=== PATIENT | female | born 2000 | race African-American/Black ===

== ENCOUNTER 2021-03-05 14:13 | Emergency (ER) | payer OTHER ==
[2021-03-05 14:47] VITALS: TEMP 98.2; BMI 23.6
[2021-03-05] MEDS ORDERED: IBUPROFEN 400 MG TABLET (FP) PO ONE ×2 (16:09→16:17)
[2021-03-05 17:51] VITALS: BP 121/70; PULSE 79
== END 2021-03-05 17:40 | disposition home or self-care (01) ==
LOC: JER 14:13
DX: M79.10 Myalgia, unspecified site (principal); Z32.02 Encounter for pregnancy test, result negative
CPT/HCPCS: 84703; 99283-25

== ENCOUNTER 2023-08-14 09:36 | Emergency (ER) | payer OTHER ==
[2023-08-14 09:49] VITALS: RESP 18; BMI 25.7
[2023-08-14] MEDS: SODIUM CHLORIDE 0.9% 500 ML INFUS.BAG IV ONE ×2 (10:29→12:07)
[2023-08-14 10:35] LABS: BASO % 0.5 % (0-2.0); EOS % 0.3 % (0-4.5); HEMATOCRIT 42.4 % (32.4-45.2); HEMOGLOBIN 14.6 GM/dL (10.7-15.3); LYMPH % 18.3 % (8-40); MCH 32.5 pg (25.7-33.7); MCHC 34.4 g/dl (32.0-36.0); MEAN CELL VOLUME 94.6 fl (80-96); NEUT % 74.9 % (42.8-82.8); PLATELET COUNT 231 10^3/uL (134-434); RBC 4.49 M/mm3 (3.60-5.2); RDW 12.5 % (11.6-15.6); WHITE BLOOD COUNT 9.1 K/mm3 (4.0-10.0)
[2023-08-14 10:38] LABS: EPI CELLS 36 /uL (0-25.1); HYALINE CASTS 6 /uL (0-3.1); URINE APPEARANCE CLOUDY; URINE BACTERIA 543 /uL (0-1359); URINE BILIRUBIN 1+ (NEGATIVE); URINE COLOR DK YELLOW; URINE GLUCOSE (UA) NEGATIVE (NEGATIVE); URINE KETONE 4+ (NEGATIVE); URINE LEUK ESTERASE NEGATIVE (NEGATIVE); URINE NITRITE NEGATIVE (NEGATIVE); URINE PROTEIN 1+ (NEGATIVE); URINE RBC 33 /uL (0-23.9)
[2023-08-14] MEDS ORDERED: ACETAMINOPHEN INJECTION 100 ML IVPB ONE (11:03)
[2023-08-14] MEDS: ACETAMINOPHEN 1000 MG/100 ML BAG IVPB ONE (11:10)
[2023-08-14 11:24] LABS: URINE WBC 122 /uL (0-25.8)
[2023-08-14 11:42] LABS: POTASSIUM 3.5 mmol/L (3.5-5.1)
[2023-08-14 11:44] LABS: ALBUMIN 4.4 g/dl (3.4-5.0); BLOOD UREA NITROGEN 8.1 mg/dL (7-18); CALCIUM 9.6 mg/dL (8.5-10.1)
[2023-08-14 11:47] LABS: CREATININE 0.7 mg/dL (0.55-1.3)
[2023-08-14 11:48] LABS: TOT PROT 7.7 g/dl (6.4-8.2)
[2023-08-14 11:49] LABS: BILIRUBIN,TOTAL 0.9 mg/dL (0.2-1)
[2023-08-14] MEDS: PYRIDOXINE HCL (B-6) 50 MG TABLET (FP) PO ONE (11:57)
[2023-08-14] MEDS ORDERED: METOCLOPRAMIDE HCL INJECTION 10 MG/2 ML VIAL ONE (13:22)
[2023-08-14] MEDS ORDERED: FAMOTIDINE 20 MG/50 ML IVPB 20 MG/50 ML MG IVPB ONE (13:23)
[2023-08-14] MEDS: METOCLOPRAMIDE HCL INJECTION 10 MG/2 ML VIAL IVPUSH ONE (13:27)
[2023-08-14] MEDS: FAMOTIDINE 20 MG/50 ML IVPB 20 MG/50 ML MG IVPB ONE (13:27)
[2023-08-14] MEDS: DEXTROSE 5%-NORMAL SALINE 500 ML IV ONE (13:54)
[2023-08-14 13:55] VITALS: BP 131/57; PULSE 89; TEMP 98
[2023-08-14 15:57] LABS: PH,URINE 5.5 (5.0-8.0); URINE APPEARANCE CLEAR; URINE BILIRUBIN NEGATIVE (NEGATIVE); URINE COLOR YELLOW; URINE GLUCOSE (UA) 3+ (NEGATIVE); URINE KETONE NEGATIVE (NEGATIVE); URINE LEUK ESTERASE NEGATIVE (NEGATIVE); URINE NITRITE NEGATIVE (NEGATIVE); URINE PROTEIN NEGATIVE (NEGATIVE); URINE UROBILINOGEN 0.2 mg/dL (0.2-1.0)
[2023-08-14] MEDS ORDERED: ONDANSETRON 4 MG/2 ML VIAL ONE (16:22)
[2023-08-14] MEDS: ONDANSETRON 4 MG/2 ML VIAL IVPUSH ONE (16:26)
== END 2023-08-14 16:57 | disposition home or self-care (01) ==
LOC: JER 09:36
PROC: 3E033GC Introduction of Other Therapeutic Substance into Peripheral Vein, Percutaneous Approach (ICD-10-PCS; principal; 2023-08-14)
PROC: 3E033GC Introduction of Other Therapeutic Substance into Peripheral Vein, Percutaneous Approach (ICD-10-PCS; 2023-08-14)
PROC: 3E033GC Introduction of Other Therapeutic Substance into Peripheral Vein, Percutaneous Approach (ICD-10-PCS; 2023-08-14)
PROC: 3E033GC Introduction of Other Therapeutic Substance into Peripheral Vein, Percutaneous Approach (ICD-10-PCS; 2023-08-14)
PROC: 3E033NZ Introduction of Analgesics, Hypnotics, Sedatives into Peripheral Vein, Percutaneous Approach (ICD-10-PCS; 2023-08-14)
DX: O21.0 Mild hyperemesis gravidarum (principal); O26.891 Other specified pregnancy related conditions, first trimester; R10.84 Generalized abdominal pain; O99.891 Other specified diseases and conditions complicating pregnancy; R19.7 Diarrhea, unspecified; R35.0 Frequency of micturition; Z3A.01 Less than 8 weeks gestation of pregnancy
CPT/HCPCS: 36415; 76817-TC; 80053; 81003; 83690; 84702; 85025; 87086; 99284-25; J0131